=== PATIENT | male | born 1995 | race American Indian/Alaskan Native ===

== ENCOUNTER 2019-06-03 11:42 | Emergency (ER) | payer OTHER ==
[2019-06-03 11:52] VITALS: BP 137/69
--- NOTE | 2019-06-03 11:59 | Emergency Department Report ---
Chief Complaint: Upper Respiratory Infection Stated Complaint: headache/sore throat - HPI History of Present Illness: 23 yo M, no PMH, presents to ED w/ sore throat x 3 days. Also reports associated cough and mild headache. Denies fever, nausea, vomitng. Pt is able to eat and drink normally. - ROS Review of Systems: Comment: All other systems reviewed and negative Constitutional: denies: chills, fever Gastrointestinal: denies: vomiting, diarrhea Respiratory: reports cough ENT: reports sore throat - Exam Vital Signs: Vital Signs 06/03/19 11:47 Temperature 98.5 F Pulse Rate 75 Respiratory 20 Rate Blood Pressure 137/69 O2 Sat by Pulse 97 Oximetry Physical Exam: - General Limitations: No Limitations General appearance: alert, in no apparent distress - Head Head exam: Present: atraumatic, normocephalic - Eye Eye exam: Present: normal appearance, EOMI - ENT ENT exam: Present: mucous membranes moist. Absent: tonsillar swelling, exudates - Neck Neck exam: Present: normal inspection. Absent: anterior lymphadenopathy - Respiratory Respiratory exam: Present: normal lung sounds bilaterally. Absent: respiratory distress, stridor, wheezing - Cardiovascular Cardiovascular Exam: Present: regular rate, normal rhythm - GI/Abdominal GI/Abdominal exam: Present: soft, nontender. Absent: distended - Extremities Exam Extremities exam: Present: normal inspection - Back Exam Back exam: Present: CVA tenderness (L) - Neurological Exam Neurological exam: Present: alert, oriented X3 - Psychiatric Psychiatric exam: Present: normal affect, normal mood - Skin Skin exam: Present: warm, dry, intact, normal color [facility] [place]: Focused history and physical exam performed. Due to findings the following was ordered: n/a 23 yo M w/ sore throat x 3 days. Posterior oropharynx is clear, uvula midline. No respiratory distress present. Vitals normal. Pt has no emergent medical condition present. Outpt resources given. Return precautions given. ED Medical Decision Making - Medical Decision Making 23 yo M, no PMH, presents to ED w/ sore throat x 3 days. Also reports associated cough and mild headache. Denies fever, nausea, vomiting. Pt is able to eat and drink normally. Posterior oropharynx is clear, uvula midline. No respiratory distress present. Vitals normal. Pt has no emergent medical condition present. Outpt resources given. Return precautions given. ED Disposition [place] [facility] [place] Impression: Pharyngitis Disposition: MED SCREENING EXAM-LEFT Is pt being admited?: No Condition: Stable Instructions: Pharyngitis (ED) Referrals: [facility] [Provider Group] - 3-5 Days ADAM RANDLE MD [Staff Physician] - 3-5 Days [facility] [Outside] - 3-5 Days Time of Disposition: 11:55
== END 2019-06-03 12:20 | disposition left against medical advice (07) ==
LOC: ED 11:42
DX: J02.9 Acute pharyngitis, unspecified (principal)
CPT/HCPCS: 99282